=== PATIENT | male | born 1945 | race Two or more races ===

== ENCOUNTER 2024-01-29 10:07 | Emergency (ER) | payer OTHER ==
[~2024-01-29] VITALS: Ht 152.4 cm; Wt 59.0 kg
[2024-01-29] MEDS ORDERED: LOSARTAN POTASS50 MG (10:17)
[2024-01-29] MEDS ORDERED: CEFTRIAXONE SODIUM 2,000 MG VIAL ONE (10:40)
[2024-01-29] MEDS ORDERED: CEFTRIAXONE SODIUM 2,000 MG VIAL IM ONE (10:45)
[2024-01-29 11:12] LABS: HEMOGLOBIN 12.2 g/dL (13-16.00); MEAN CELL VOLUME 81.1 fL (80.0-100.00); MEAN CORPUSCULAR HEMOGLOBIN 26.8 pg (27.00-32.0); PLATELET COUNT 338 K/uL (150-450); RED BLOOD COUNT 4.56 M/uL (4.00-6.00); RED CELL DISTRIBUTION WIDTH 14.4 % (11.5-14.5)
[2024-01-29 11:29] LABS: ERYTHROCYTE SEDIMENTATION RATE 116 mm/hr
[2024-01-29 11:39] LABS: INR 1.04; PARTIAL THROMBOPLASTIN TIME 30.7 SECONDS (22.0-34.0); PROTHROMBIN TIME 10.9 SECONDS (9.0-11.5)
[2024-01-29 11:44] LABS: ALBUMIN 3.3 gm/dL (3.4-5.0); BILIRUBIN TOTAL 0.9 mg/dL (0.3-1.2); CALCIUM 9.4 mg/dL (8.5-10.1); CREATININE SERUM 1.37 mg/dL (0.70-1.30); GFR 50.38; GLOBULINA 5.2 G/DL (2.4-3.5); POTASSIUM 3.02 mEq/L (3.5-5.1); TOTAL PROTEIN 8.5 gm/dL (6.4-8.2)
[2024-01-29] MEDS ORDERED: CEPHALEXIN750 MG PO (13:26)
[2024-01-29] MEDS ORDERED: PEPCID AC20 MG PO (13:26)
== END 2024-01-29 13:33 | disposition home or self-care (01) ==
LOC: ER 10:09
PROVIDERS: General Practice
DX: L03.115 Cellulitis of right lower limb (principal); Z88.6 Allergy status to analgesic agent; I10 Essential (primary) hypertension
CPT/HCPCS: 36415; 73590; 73600; 96372; 99283; J0696